=== PATIENT | female | born 1975 | race Caucasian/White ===

== ENCOUNTER 2024-06-01 16:57 | Inpatient (IN) ==
[2024-06-01 17:35] LABS: Hematocrit (blood only) 41.3 % (37.0-47.0); Hemoglobin 13.8 g/dl (12.0-16.0); Mean Corpuscular Hemoglobin 29.6 pg (25.0-34.0); Mean Corpuscular Hgb Conc 33.4 g/dL (32.0-36.0); Mean Corpuscular Volume 88.6 fL (80.0-100.0); Mean Platelet Volume 9.6 fL (9.4-12.4); Platelet Count 289 K/uL (130-400); RDW Coefficient of Variation 14.2 % (11.5-14.5); RDW Standard Deviation 45.8 fL (36.4-46.3); Red Blood Count 4.66 M/uL (4.20-5.40); White Blood Count 7.24 K/ul (4.8-10.8)
[2024-06-01 17:52] LABS: Albumin Globulin Ratio 1.6 (0.9-2); Bilirubin,Total 0.8 mg/dl (0.2-1.0); Calcium 10.2 mg/dl (8.6-10.3); Creatinine Clr Calc Pharmacy 92.3 ml/min; Est GFR (African American) 123.4 ml/min; Est GFR (Non-African American) 106.5 ml/min; Globulin 3.2 gm/dl (2.5-4.0); Magnesium 1.9 mg/dl (1.7-2.4); Potassium 3.5 mmol/L (3.5-5.1); Total Protein 8.2 gm/dl (6.0-8.3)
[2024-06-01 18:02] LABS: Partial Thromboplastin Time 26 Seconds (21-31); Prothrombin Time 10.6 Seconds (9.0-12.0)
--- NOTE | 2024-06-01 18:18 | XRay Report ---
XR chest 1V portable HISTORY: stroke alert COMPARISON: Chest 01/20/2020. FINDINGS: The lungs are clear. Cardiac silhouette is normal in size. No pleural effusions. No pneumot horax. IMPRESSION: No acute process. ACT 112: Negative or not required by law. Electronically signed by: Terrance Red M.D. 06/01/2024 6:17 PM
[2024-06-01] MEDS: OPTIRAY 320 100ml IV ONE (18:52)
--- NOTE | 2024-06-01 19:26 | Emergency Department Note ---
Impression & Plan Acute right-sided weakness ED Provider Note NAME: BRAYDEN Sawant SATURDAY AGE: 48 SEX: F : 1975 ARRIVES VIA: Walk-In INFORMANT: Patient, ED PROVIDER(S): Libby Pratt MD CHIEF COMPLAINT: Headache, dizziness, right sided weakness HPI: This is a 48-year-old female senting for right-sided weakness, headache, dizziness. Patient is with her and states that over the past 1 week she has had 2 episodes of "zoning out". He states that 1 time they were eating dinner and patient was staring off into space and could not be aroused. She was awake and staring off into space. Afterwards she appeared somewhat confused. She notes she went to her primary care physician who Noted she was weak on the right side. She has mention history of ascending aortic aneurysm as well as fibromuscular dysplasia. History of aortic valve stenosis/regurgitation. ROS: See above HPI for pertinent positives & negatives. A total of 10 systems reviewed and were otherwise negative. PHYSICAL EXAMINATION: General: resting comfortably in no acute distress Head: Normocephalic and atraumatic Eyes: Normal inspection, extraocular muscles intact Ear, nose, throat: Normal external exam Neck: Normal range of motion Respiratory: lungs clear to auscultation bilaterally Cardiovascular: Regular rate/rhythm, no murmur GI: soft, nontender, no guarding or rebound Extremities: nontender, moves all extremities Neuro: Right upper lower extremity weakness, cranial 2 through 12 grossly intact Skin: Warm, dry, and intact MEDICAL DECISION MAKING: This is a 48-year-old female senting for right-sided weakness, headache and dizziness. Patient also with episodes of zoning out. Consider intracranial mass, hemorrhage, MS, dissection. Will do CT of the head, neck and chest to rule out dissection versus intracranial bleeding versus mass. -Patient CTA currently is negative for acute process. There is a stable ascending aneurysm -Patient blood work is reviewed showing slight hyponatremia otherwise no significant abnormalities. -Patient still has persistent neurosymptoms. Will require admission at this time for further workup. -Discussed care with Dr. Aguiar Differential diagnosis: See above ER treatment provided: See below Diagnostics interpreted by me: ECG: None Cardiac Monitoring: An order was placed for continuous cardiac monitoring. The monitor shows a rate of 70 with sinus rhythm. Laboratory studies: As stated above and show below. Imaging studies: See below. Past Med/Surg History Problem List (Updated 06/02/24 @ 00:04 by Bird Cortez MD) Status post craniectomy Familial hypercholesterolemia Nocturia more than twice per night Recurrent episodes of unresponsiveness Aortic stenosis Mild to moderate per 12/31/19 ECHO = RHYS 1.6-1.7cm2; AV peak velocity 3.02m/s; AV mean gradient 18.9mmHg Follows with [facility] cardio FH of AV stenosis Hyperlipidemia History of Chiari malformation repaired 2011- no issues since repair- no follow up with neurosurgery or imaging needed per patient Hyponatremia with decreased serum osmolality Post-operative state Ascending aorta dilatation Aortic insufficiency Aortic stenosis Encounter for pre-operative examination Dyspnea on exertion (Acute) Menorrhagia Medical History History of Chiari malformation repaired 2011- no issues since repair- no follow up with neurosurgery or imaging needed per patient IBS (irritable bowel syndrome) Combination of diarrhea and constipation Anxiety No recent issues- hx of and has xanax if needed and has not used since 2018 Hyperlipidemia History of COVID-19 11/24/2020 was positive ([facility]) aches, fatigue, congestion, loss of taste/smell/ headache. quarantine 14 days no current sypmtoms and has received her vaccinations HTN (hypertension) Aortic stenosis Mild to moderate per 12/31/19 ECHO = RHYS 1.6-1.7cm2; AV peak velocity 3.02m/s; AV mean gradient 18.9mmHg Follows with [facility] cardio FH of AV stenosis Facial paresthesia Secondary to cluster migraine No current issues Hypophosphatasia patient is unaware Surgical History Hx of tubal ligation Hx of tonsillectomy History of umbilical hernia repair Family History Mother TIA (transient ischemic attack) Breast cancer Denies family history of Ovarian cancer Colorectal cancer Social History Smoking Status: Never smoker Second Hand Exposure: No; Do You Dip or Chew Tobacco: No; Hx Alcohol Use: Yes Hx Substance Use: No Preferred Language: Chinese Communication Ability: Effective Collar Sewer Required: No Beliefs That Will Affect Care: None Current Living Situation: Spouse Feels Safe at Home: Yes Assistive Devices: Glasses Allergies Allergies Allergy/AdvReac Type Severity Reaction Status Date / Time procaine Allergy Severe "Novocaine"-THROAT, Verified 06/01/24 19:58 TONGUE, MOUTH SWELLED Home Meds Home Medications Medication Instructions Recorded Confirmed aspirin 81 mg tablet,delayed 81 mg PO DAILY 06/01/24 06/01/24 release bempedoic acid 180 mg-ezetimibe 10 1 tab PO DAILY 06/01/24 06/01/24 mg tablet (Nexlizet) esomeprazole magnesium 20 mg 20 mg PO DAILY 06/01/24 06/01/24 tablet,delayed release evolocumab 140 mg/mL subcutaneous 140 mg subcut .QOTHER Saturday06/01/24 06/01/24 pen injector (Kimo Vila) fexofenadine 180 mg tablet 180 mg PO DAILY 06/01/24 06/01/24 fluoxetine 40 mg capsule 40 mg PO DAILY 06/01/24 06/01/24 rosuvastatin 40 mg tablet 40 mg PO DAILY 06/01/24 06/01/24 semaglutide (weight loss) 1.7 1.7 mg subcut .WEEK 06/01/24 06/01/24 mg/0.75 mL subcutaneous pen injector (Ksenia) Results & Data (ED) Vital Signs Vital Signs - 24 hr 06/01/24 17:02 06/01/24 19:00 06/01/24 19:14 Temperature 36.5 C Temperature Source Temporal Artery Scan Pulse Rate 80 72 Pulse Rate [Apical] 70 Pulse Rhythm Regular Pulse Rhythm [Apical] Regular Pulse Strength [Apical] Normal Respiratory Rate 20 17 Respiratory Effort / Characteristics Non-Labored Spontaneous Non-Labored Spontaneous Respiratory Depth Normal Normal Respiratory Pattern Regular Blood Pressure 130/85 Blood Pressure [Right Arm] 124/80 Blood Pressure Mean 100 Blood Pressure Mean [Right Arm] 94 Blood Pressure Position [Right Arm] Lying Pulse Oximetry 98 100 Oxygen Delivery Method Room Air Room Air Sepsis Recent Fever Within 48 Hours No Sepsis New/Unexplained Change in Mental Status No Sepsis Action Taken by Nursing No Action Required 06/01/24 21:00 Temperature Temperature Source Pulse Rate Pulse Rate [Apical] 71 Pulse Rhythm Pulse Rhythm [Apical] Regular Pulse Strength [Apical] Normal Respiratory Rate 19 Respiratory Effort / Characteristics Non-Labored Respiratory Depth Normal Respiratory Pattern Regular Blood Pressure Blood Pressure [Right Arm] 144/95 H Blood Pressure Mean Blood Pressure Mean [Right Arm] 111 Blood Pressure Position [Right Arm] Lying Pulse Oximetry 100 Oxygen Delivery Method Room Air Sepsis Recent Fever Within 48 Hours Sepsis New/Unexplained Change in Mental Status Sepsis Action Taken by Nursing Laboratory Data 06/01/24 17:13 06/01/24 17:13 Lab Results 06/01/24 Range/Units 17:13 WBC 7.24 (4.8-10.8) K/ul RBC 4.66 (4.20-5.40) M/uL Hgb 13.8 (12.0-16.0) g/dl Hct 41.3 (37.0-47.0) % MCV 88.6 (80.0-100.0) fL MCH 29.6 (25.0-34.0) pg MCHC 33.4 (32.0-36.0) g/dL RDW Std Deviation 45.8 (36.4-46.3) fL RDW Coeff of Andriy 14.2 (11.5-14.5) % Plt Count 289 (130-400) K/uL MPV 9.6 (9.4-12.4) fL ESR 16 (0-20) mm/hr PT 10.6 (9.0-12.0) Seconds INR 1.0 (0.9-1.1) APTT 26 (21-31) Seconds PTT Ratio 1.0 Sodium 128 L (136-145) mmol/L Potassium 3.5 (3.5-5.1) mmol/L Chloride 95 L (98-107) mmol/L Carbon Dioxide 23 (21-32) mmol/L Anion Gap 10 (3-11) BUN 11 (6-23) mg/dl Creatinine 0.61 (0.6-1.2) mg/dl Est Cr Clr Drug Dosing 92.3 ml/min Est GFR ( Amer) 123.4 ml/min Est GFR (Non-Af Amer) 106.5 ml/min BUN/Creatinine Ratio 18.0 (10-20) Glucose 85 (70-99(Fasting)) mg/dl Osmolality 265 L (280-300) mOsm/kg Calcium 10.2 (8.6-10.3) mg/dl Magnesium 1.9 (1.7-2.4) mg/dl Total Bilirubin 0.8 (0.2-1.0) mg/dl AST 26 (13-39) U/L ALT 34 (7-52) U/L Alkaline Phosphatase 40 (34-104) U/L Total Protein 8.2 (6.0-8.3) gm/dl Albumin 5.0 (3.4-5.0) gm/dl Globulin 3.2 (2.5-4.0) gm/dl Albumin/Globulin Ratio 1.6 (0.9-2) Anaplasma Smear See Comment Babesia Smear See Comment Lyme Disease Screen Negative (Negative) Administered Medications Discontinued Medications Ioversol (Optiray 320 100ml) 120 ml IV ONCE ONE Stop: 06/01/24 18:52 Last Admin: 06/01/24 18:52 Dose: 120 ml Documented By: LEROY Lorazepam (Lorazepam 1 Mg/1 Ml Syr Ed Inj Use) 0.5 mg IV ONE STA Stop: 06/01/24 21:17 Last Admin: 06/01/24 21:32 Dose: 0.5 mg Documented By: Imaging Data Radiologist's Impression: Chest X-Ray 06/01/24 17:09 XR chest 1V portable HISTORY: stroke alert COMPARISON: Chest 01/20/2020. FINDINGS: The lungs are clear. Cardiac silhouette is normal in size. No pleural effusions. No pneumothorax. IMPRESSION: No acute process. ACT 112: Negative or not required by law. Electronically signed by: Terrance Red M.D. 06/01/2024 6:[address] 06/01/24 17:09 Exam(s): CT HEAD Without Contrast EXAM: CT Head Without Intravenous Contrast CLINICAL HISTORY: Reason for exam: Neuro deficit, acute, stroke suspected. TECHNIQUE: Axial computed tomography images of the head/brain without intravenous contrast. CTDI is 67 mGy and DLP is 565 mGy-cm. Automated exposure control was utilized for the study. A dose lowering technique was utilized adhering to the principles of ALARA. COMPARISON: MRI brain 03/05/23. FINDINGS: Brain: No mass effect or acute infarct. No acute hemorrhage. No abnormal density in the brain parenchyma. Ventricles: No hydrocephalus or midline shift. Bones/joints: No skull fracture. Well-healed suboccipital craniectomy. Soft tissues: No scalp hematoma. Visualized Sinuses: Clear. Mastoid air cells: No mastoid effusion. IMPRESSION: 1. Well-healed suboccipital craniectomy. 2. No acute intracranial abnormality. Electronically signed by: Kina Hogue M.D. 06/01/24 19:55 PM Chest CTA 06/01/24 18:33 Exam(s): CTA CHEST W/WO Contrast IV Amt: 120ml optiray 320 EXAM: CT Angiography Chest Without and With Intravenous Contrast CLINICAL HISTORY: Reason for exam: Dissection, hx of Fibromuscular dysplasia. TECHNIQUE: Axial computed tomographic angiography images of the chest without and with intravenous contrast. CTDI is 67 mGy and DLP is 565 mGy-cm. Automated exposure control was utilized for the study. A dose lowering technique was utilized adhering to the principles of ALARA. MIP reconstructed images were created and reviewed. CONTRAST: Patient received 120ml optiray 320 of IV contrast COMPARISON: Chest CT 05/10/2023 FINDINGS: Pulmonary arteries: No pulmonary embolism. Aorta: Aneurysmal ascending thoracic aorta measuring 4.4 cm which is unchanged. No acute aortic syndrome. Lungs: Unremarkable. Pleural space: Unremarkable. Heart: Unremarkable. Bones/joints: No acute fracture. Soft tissues: Unremarkable. Lymph nodes: Unremarkable. Liver: Partially visualized low-attenuation lesions within the liver favored to represent cysts. IMPRESSION: Aneurysmal ascending thoracic aorta measuring 4.4 cm which is unchanged. No acute aortic syndrome. Electronically signed by: Rohit Stallworth MD 06/01/24 19:49 PM Head CTA 06/01/24 18:33 Exam(s): CTA HEAD With Contrast IV Amt: 120ml optiray 320 EXAM: CT Angiography Head With Intravenous Contrast CLINICAL HISTORY: Reason for exam: Dissection, hx of Fibromuscular dysplasia, R weak. TECHNIQUE: Axial computed tomographic angiography images of the head with intravenous contrast. CTDI is 67 mGy and DLP is 565 mGy-cm. Automated exposure control was utilized for the study. A dose lowering technique was utilized adhering to the principles of ALARA. MIP reconstructed images were created and reviewed. CONTRAST: Patient received 120ml optiray 320 of IV contrast COMPARISON: Head CT done earlier. FINDINGS: Right internal carotid artery: Patent. Right anterior cerebral artery: Patent. Right middle cerebral artery: Patent. Right posterior cerebral artery: Patent. Right vertebral artery: Patent. Left internal carotid artery: Patent. Left anterior cerebral artery: Patent. Left middle cerebral artery: Patent. Left posterior cerebral artery: Patent. Left vertebral artery: Patent. Basilar artery: Patent. Other: Changes of suboccipital craniectomy again noted. IMPRESSION: 1. No aneurysm or large vessel occlusion. Electronically signed by: Kina Hogue M.D. 06/01/24 20:00 PM Neck CTA 06/01/24 18:33 Exam(s): CTA NECK With Contrast IV Amt: 120ml optiray 320 EXAM: CT Angiography Neck With Intravenous Contrast, With Intra-Articular Contrast CLINICAL HISTORY: Reason for exam: Dissection, hx of Fibromuscular dysplasia. TECHNIQUE: Routine carotid CT angiography protocol was performed with intravenous contrast, with intra-articular contrast. NASCET criteria using the distal ICAs for comparison were used for evaluation of stenoses. CTDI is 67 mGy and DLP is 565 mGy-cm. Automated exposure control was utilized for the study. A dose lowering technique was utilized adhering to the principles of ALARA. MIP reconstructed images were created and reviewed. CONTRAST: Patient received 120ml optiray 320 of IV contrast COMPARISON: None. FINDINGS: Right common carotid artery: Patent. Right internal carotid artery: Patent. Right vertebral artery: Patent. Left common carotid artery: Patent. Left internal carotid artery: Patent. Left vertebral artery: Patent. Codominant. Other: No significant carotid atherosclerosis or stenosis. IMPRESSION: 1. No dissection, occlusion, or significant stenosis. CAROTID STENOSIS REFERENCE USING NASCET CRITERIA: % ICA stenosis = (1 - narrowest ICA diameter/diameter of distal cervical ICA) x 100. Mild - <50% stenosis. Moderate - 50-69% stenosis. Severe - 70-94% stenosis. Near occlusion - 95-99% stenosis. Occluded - 100% stenosis. Electronically signed by: Kina Hogue M.D. 06/01/24 20:00 PM Brain MRI 06/01/24 21:02 Exam(s): MRI HEAD Without Contrast EXAM: MR Head Without Intravenous Contrast CLINICAL HISTORY: Reason for exam: altered mentation, hx suboccipital craniectomy. TECHNIQUE: Magnetic resonance images of the head/brain without intravenous contrast in multiple planes. COMPARISON: MRI 03/05/[address] 06/01/2024 FINDINGS: Brain: Unremarkable. No mass. No hemorrhage. No acute infarct. Ventricles: Unremarkable. No ventriculomegaly. Bones/joints: Unremarkable. No acute fracture. Sinuses: Mucosal thickening within the left sphenoid sinus. Remainder of the paranasal sinuses are clear. No acute sinusitis. Mastoid air cells: Unremarkable as visualized. No mastoid effusion. Orbits: Unremarkable as visualized. IMPRESSION: No acute findings in the head/brain. Electronically signed by: Rohit Stallworth MD 06/01/24 22:49 PM Cervical Spine MRI 06/01/24 21:02 Exam(s): MRI C SPINE EXAM: MR Cervical Spine Without Intravenous Contrast CLINICAL HISTORY: Reason for exam: altered mentation, hx suboccipital craniectomy. TECHNIQUE: Magnetic resonance images of the cervical spine without intravenous contrast in multiple planes. COMPARISON: Cervical spine MRI 07/07/12. FINDINGS: Vertebrae: No marrow edema, compression deformity, discitis or osteomyelitis. Normal, smooth curvature. Spinal cord: Unremarkable. Normal signal. No cervical cord syrinx. Soft tissues: Unremarkable. No epidural hematoma or abscess. No Chiari malformation. DISCS/SPINAL CANAL/NEURAL FORAMINA: C2-C3: Unremarkable. C3-C4: Unremarkable. C4-C5: Unremarkable. C5-C6: Very minimal degenerative disc disease. C6-C7: Unremarkable. C7-T1: Unremarkable. OTHER: No disc herniation or central spinal stenosis. Facet joint fairly well-preserved for this age group. IMPRESSION: 1. Very minimal degenerative disc disease at C5-6. 2. No Chiari malformation, disc herniation, spinal stenosis, epidural hematoma, abnormal cord signal, or discitis/osteomyelitis. Electronically signed by: Kina Hogue M.D. 06/01/24 23:20 PM Discharge Plan Visit Data Chief Complaint: Referred by Doctor Stated Complaint: R SIDED WEAKNESS/POSSIBLE ARTERY DISSECTION REF BY ED Provider: Libby Pratt Discharge Problem: Acute right-sided weakness Patient Disposition: Admitted As Inpatient Discharge Instructions Interventions: ED Discharge Assessment Last Done: 06/01/24 23:20
--- NOTE | 2024-06-01 19:50 | CT Scan Report ---
Exam(s): CTA CHEST W/WO Contrast IV Amt: 120ml optiray 320 EXAM: CT Angiography Chest Without and With Intravenous Contrast CLINICAL HISTORY: Reason for exam: Dissection, hx of Fibromuscular dysplasia. TECHNIQUE: Axial computed tomographic angiography images of the chest without and with intravenous contrast. CTDI is 67 mGy and DLP is 565 mGy-cm. Automated exposure control was utilized for the study. A dose lowering technique was utilized adhering to the principles of ALARA. MIP reconstructed images were created and reviewed. CONTRAST: Patient received 120ml optiray 320 of IV contrast COMPARISON: Chest CT 05/10/2023 FINDINGS: Pulmonary arteries: No pulmonary embolism. Aorta: Aneurysmal ascending thoracic aorta measuring 4.4 cm which is unchanged. No acute aortic syndrome. Lungs: Unremarkable. Pleural space: Unremarkable. Heart: Unremarkable. Bones/joints: No acute fracture. Soft tissues: Unremarkable. Lymph nodes: Unremarkable. Liver: Partially visualized low-attenuation lesions within the liver favored to represent cysts. IMPRESSION: Aneurysmal ascending thoracic aorta measuring 4.4 cm which is unchanged. No acute aortic syndrome. Electronically signed by: Rohit Stallworth MD 06/01/24 19:49 PM
--- NOTE | 2024-06-01 19:56 | CT Scan Report ---
Exam(s): CT HEAD Without Contrast EXAM: CT Head Without Intravenous Contrast CLINICAL HISTORY: Reason for exam: Neuro deficit, acute, stroke suspected. TECHNIQUE: Axial computed tomography images of the head/brain without intravenous contrast. CTDI is 67 mGy and DLP is 565 mGy-cm. Automated exposure control was utilized for the study. A dose lowering technique was utilized adhering to the principles of ALARA. COMPARISON: MRI brain 03/05/23. FINDINGS: Brain: No mass effect or acute infarct. No acute hemorrhage. No abnormal density in the brain parenchyma. Ventricles: No hydrocephalus or midline shift. Bones/joints: No skull fracture. Well-healed suboccipital craniectomy. Soft tissues: No scalp hematoma. Visualized Sinuses: Clear. Mastoid air cells: No mastoid effusion. IMPRESSION: 1. Well-healed suboccipital craniectomy. 2. No acute intracranial abnormality. Electronically signed by: Kina Hogue M.D. 06/01/24 19:55 PM
--- NOTE | 2024-06-01 20:01 | CT Scan Report ---
Exam(s): CTA HEAD With Contrast IV Amt: 120ml optiray 320 EXAM: CT Angiography Head With Intravenous Contrast CLINICAL HISTORY: Reason for exam: Dissection, hx of Fibromuscular dysplasia, R weak. TECHNIQUE: Axial computed tomographic angiography images of the head with intravenous contrast. CTDI is 67 mGy and DLP is 565 mGy-cm. Automated exposure control was utilized for the study. A dose lowering technique was utilized adhering to the principles of ALARA. MIP reconstructed images were created and reviewed. CONTRAST: Patient received 120ml optiray 320 of IV contrast COMPARISON: Head CT done earlier. FINDINGS: Right internal carotid artery: Patent. Right anterior cerebral artery: Patent. Right middle cerebral artery: Patent. Right posterior cerebral artery: Patent. Right vertebral artery: Patent. Left internal carotid artery: Patent. Left anterior cerebral artery: Patent. Left middle cerebral artery: Patent. Left posterior cerebral artery: Patent. Left vertebral artery: Patent. Basilar artery: Patent. Other: Changes of suboccipital craniectomy again noted. IMPRESSION: 1. No aneurysm or large vessel occlusion. Electronically signed by: Kina Hogue M.D. 06/01/24 20:00 PM
--- NOTE | 2024-06-01 20:01 | CT Scan Report ---
Exam(s): CTA NECK With Contrast IV Amt: 120ml optiray 320 EXAM: CT Angiography Neck With Intravenous Contrast, With Intra-Articular Contrast CLINICAL HISTORY: Reason for exam: Dissection, hx of Fibromuscular dysplasia. TECHNIQUE: Routine carotid CT angiography protocol was performed with intravenous contrast, with intra-articular contrast. NASCET criteria using the distal ICAs for comparison were used for evaluation of stenoses. CTDI is 67 mGy and DLP is 565 mGy-cm. Automated exposure control was utilized for the study. A dose lowering technique was utilized adhering to the principles of ALARA. MIP reconstructed images were created and reviewed. CONTRAST: Patient received 120ml optiray 320 of IV contrast COMPARISON: None. FINDINGS: Right common carotid artery: Patent. Right internal carotid artery: Patent. Right vertebral artery: Patent. Left common carotid artery: Patent. Left internal carotid artery: Patent. Left vertebral artery: Patent. Codominant. Other: No significant carotid atherosclerosis or stenosis. IMPRESSION: 1. No dissection, occlusion, or significant stenosis. CAROTID STENOSIS REFERENCE USING NASCET CRITERIA: % ICA stenosis = (1 - narrowest ICA diameter/diameter of distal cervical ICA) x 100. Mild - <50% stenosis. Moderate - 50-69% stenosis. Severe - 70-94% stenosis. Near occlusion - 95-99% stenosis. Occluded - 100% stenosis. Electronically signed by: Kina Hogue M.D. 06/01/24 20:00 PM
--- NOTE | 2024-06-01 21:29 | History & Physical Report ---
Date of Service June 01, 2024 Assessment & Plan (1) Recurrent episodes of unresponsiveness: (2) Hyponatremia with decreased serum osmolality: (3) History of Chiari malformation: (4) Ascending aorta dilatation: (5) Aortic insufficiency: (6) Aortic stenosis: (7) Nocturia more than twice per night: (8) Familial hypercholesterolemia: (9) Status post craniectomy: Plan Recurrent episodes of unresponsiveness- reports that about 1 week ago she had a first episode, where she was staring off into space and he had a wave hands in front of her eyes and ultimately get her to respond after several seconds. Second episode happened 2 days ago, a longer duration of a few minutes, and then she was confused for up to 30 minutes afterwards, without loss of bowel or bladder control, and no noted tremors or shaking No focal deficits on examination Lyme test added and negative Anaplasmosis and babesiosis smears negative with antibodies pending Ehrlichiosis antibody pending Hypercoagulable workup to assess for arterial coagulopathy Continue aspirin 81 mg daily History of Chiari malformation/status post suboccipital craniectomy in 2011- CT scan head negative except for evidence of craniectomy CTA head and neck negative MRI of brain and cervical spine with no acute findings EEG ordered Will consult neurology Hyponatremia- Sodium 128 on admission, with previous 134 on 12/16/2023 Serum osmolality 265, with urine osmolality pending Patient denies excessive fluid intake Further treatment pending results of UA and urine osmolality Moderate aortic stenosis/aortic insufficiency/dilated ascending aorta- CTA notes stable at 4.4 cm Echocardiogram ordered for the a.m. Assess valvular function, and possibility of SBE Nocturia- Patient reports that she gets up every 2 hours to urinate, she notices, as she has to stop her CPAP machine at the time, and the timing is noted there Urinalysis, urine culture and sensitivity ordered and pending Severe familial hypercholesterolemia- Continues on Nexlizet, Repatha, and rosuvastatin Weight loss- Intentional 90 pound weight loss since August 2023 on Wegovy Reports that she is at her target weight Bilateral lower extremity dysfunction of toes- Patient reports that she has had a decreased ability to flex her toes bilaterally [facility] reportedly was concerned regarding arterial circulation She has had negative arterial Dopplers of left lower extremity earlier this year Order right lower extremity arterial Doppler Sleep apnea- Wears CPAP at bedtime History of Present Illness Chief Complaint: The patient presents to the emergency department with her , due to concerns regarding episodes of staring off into space, with the first being about 1 week ago, of a few seconds duration, and then another 2 days ago, which lasted several minutes, and she was confused afterwards for up to 30 minutes. Primary Care Provider: Lisa Taylor DO The patient is a 48-year-old female with a past medical history including Chiari malformation status post suboccipital craniotomy in 2011, moderate aortic stenosis, aortic insufficiency, ascending aorta dilatation, severe atherogenic familial hypercholesterolemia, obesity on weight loss Wegovy with 90 pound weight loss since August 2023. The patient presents to the emergency department due to concerns regarding multiple episodes of staring off into space, with most recent followed by disorientation for up to 30 minutes, without associated loss of bowel or bladder control. The patient does report nocturia, urinating approximately every 2 hours overnight. She also notes decreased ability to flex toes, and more recent development but exact timeframe uncertain. She reports that she was to get arterial studies done at [facility]. She follows at [facility] for her severe familial hypercholesterolemia, and associated medical issues. The patient reports an intentional 90 pound weight loss since August 2023 on Wego, and reports that she is currently at her recommended target weight, but her cholesterol is still not optimized with an LDL of approximately 90 Allergies Allergy/AdvReac Type Severity Reaction Status Date / Time procaine Allergy Severe "Novocaine"-THROAT, Verified 06/01/24 19:58 TONGUE, MOUTH SWELLED Home Medications Medication Instructions Recorded Confirmed Type aspirin 81 mg tablet,delayed 81 mg PO DAILY 06/01/24 06/01/24 History release bempedoic acid 180 mg-ezetimibe 10 1 tab PO DAILY 06/01/24 06/01/24 History mg tablet (Nexlizet) esomeprazole magnesium 20 mg 20 mg PO DAILY 06/01/24 06/01/24 History tablet,delayed release evolocumab 140 mg/mL subcutaneous 140 mg subcut .QOTHER Saturday06/01/24 06/01/24 History pen injector (Repmessi Vila) fexofenadine 180 mg tablet 180 mg PO DAILY 06/01/24 06/01/24 History fluoxetine 40 mg capsule 40 mg PO DAILY 06/01/24 06/01/24 History rosuvastatin 40 mg tablet 40 mg PO DAILY 06/01/24 06/01/24 History semaglutide (weight loss) 1.7 1.7 mg subcut .WEEK 06/01/24 06/01/24 History mg/0.75 mL subcutaneous pen injector (Wegovy) Past Med/Surg History Problem List (Updated 06/02/24 @ 00:04 by Bird Cortez MD) Status post craniectomy Familial hypercholesterolemia Nocturia more than twice per night Recurrent episodes of unresponsiveness Aortic stenosis Mild to moderate per 12/31/19 ECHO = RHYS 1.6-1.7cm2; AV peak velocity 3.02m/s; AV mean gradient 18.9mmHg Follows with [facility] cardio FH of AV stenosis Hyperlipidemia History of Chiari malformation repaired 2011- no issues since repair- no follow up with neurosurgery or imaging needed per patient Hyponatremia with decreased serum osmolality Post-operative state Ascending aorta dilatation Aortic insufficiency Aortic stenosis Encounter for pre-operative examination Dyspnea on exertion (Acute) Menorrhagia Medical History History of Chiari malformation repaired 2011- no issues since repair- no follow up with neurosurgery or imaging needed per patient IBS (irritable bowel syndrome) Combination of diarrhea and constipation Anxiety No recent issues- hx of and has xanax if needed and has not used since 2018 Hyperlipidemia History of COVID-19 11/24/2020 was positive ([facility]) aches, fatigue, congestion, loss of taste/smell/ headache. quarantine 14 days no current sypmtoms and has received her vaccinations HTN (hypertension) Aortic stenosis Mild to moderate per 12/31/19 ECHO = RHYS 1.6-1.7cm2; AV peak velocity 3.02m/s; AV mean gradient 18.9mmHg Follows with [facility] cardio FH of AV stenosis Facial paresthesia Secondary to cluster migraine No current issues Hypophosphatasia patient is unaware Surgical History Hx of tubal ligation Hx of tonsillectomy History of umbilical hernia repair Family History Mother TIA (transient ischemic attack) Breast cancer Denies family history of Ovarian cancer Colorectal cancer Social History Smoking Status: Never smoker Second Hand Exposure: No; Do You Dip or Chew Tobacco: No; Hx Alcohol Use: Yes Hx Substance Use: No Preferred Language: Yakut Communication Ability: Effective Indoor Landscaper/Gardener Required: No Beliefs That Will Affect Care: None Current Living Situation: Spouse Feels Safe at Home: Yes Assistive Devices: CPAP and Glasses Review of Systems Review of Systems: The patient denies chest pain, palpitations, shortness of breath, dyspnea on exertion, cough, lower extremity swelling, sore throat, fevers, chills, sweats, nausea, vomiting, diarrhea , constipation, abdominal pain, pelvic pain, blood in urine or stool, dysuria, urinary frequency or urgency, lightheadedness, dizziness, headache, loss of consciousness, rash, abnormal bruising or bleeding, imbalance, focal or generalized weakness, numbness or tingling in arms or legs, generalized arthralgias or myalgias, back or neck pain, or night sweats. The review of systems is otherwise negative other than for that already noted above, and at least 10 systems have been reviewed. Physical Exam Physical Exam: The patient is awake, alert and oriented 3, well developed and well nourished, normocephalic and atraumatic, lying in bed and in no acute distress. HEENT--PERRL, EOMI, mucous membranes and oropharynx normal. Neck--supple. No JVD. No bruits. Thyroid normal, trachea midline, no adenopathy. Heart--normal S1 and S2. No murmurs, rubs or gallops. Lungs--clear bilaterally, no respiratory distress, no accessory muscle use. Abdomen--normal bowel sounds and soft. Nontender. Nondistended, no hernias or masses, no organomegaly. Extremities--no cyanosis or clubbing. No edema. There are diminished pulses bilaterally Dermatologic--normal skin turgor, normal color, no abnormal lymph nodes, no rash. Neurologic--cranial nerves II through XII grossly intact. Decreased ability to flex toes symmetrically, but able to dorsiflex Rheumatologic--normal range of motion. Psychiatric--normal affect. Results & Data Results & Data Vital Signs (Past 12 Hours) Vital Signs Temp Pulse Pulse Resp BP BP Pulse Ox 06/01/24 19:14 72 06/01/24 19:00 70 17 124/80 100 06/01/24 17:02 36.5 C 80 20 130/85 98 O2 Del Method 06/01/24 19:14 06/01/24 19:00 Room Air 06/01/24 17:02 Room Air Laboratory Results Laboratory Results WBC 7.24 K/ul (4.8-10.8) 06/01/24 17:13 RBC 4.66 M/uL (4.20-5.40) 06/01/24 17:13 Hgb 13.8 g/dl (12.0-16.0) 06/01/24 17:13 Hct 41.3 % (37.0-47.0) 06/01/24 17:13 MCV 88.6 fL (80.0-100.0) 06/01/24 17:13 MCH 29.6 pg (25.0-34.0) 06/01/24 17:13 MCHC 33.4 g/dL (32.0-36.0) 06/01/24 17:13 RDW Std Deviation 45.8 fL (36.4-46.3) 06/01/24 17:13 RDW Coeff of Andriy 14.2 % (11.5-14.5) 06/01/24 17:13 Plt Count 289 K/uL (130-400) 06/01/24 17:13 MPV 9.6 fL (9.4-12.4) 06/01/24 17:13 ESR 16 mm/hr (0-20) 06/01/24 17:13 PT 10.6 Seconds (9.0-12.0) 06/01/24 17:13 INR 1.0 (0.9-1.1) 06/01/24 17:13 APTT 26 Seconds (21-31) 06/01/24 17:13 PTT Ratio 1.0 06/01/24 17:13 Sodium 128 mmol/L (136-145) L 06/01/24 17:13 Potassium 3.5 mmol/L (3.5-5.1) 06/01/24 17:13 Chloride 95 mmol/L (98-107) L 06/01/24 17:13 Carbon Dioxide 23 mmol/L (21-32) 06/01/24 17:13 Anion Gap 10 (3-11) 06/01/24 17:13 BUN 11 mg/dl (6-23) 06/01/24 17:13 Creatinine 0.61 mg/dl (0.6-1.2) 06/01/24 17:13 Est Cr Clr Drug Dosing 92.3 ml/min 06/01/24 17:13 Est GFR ( Amer) 123.4 ml/min 06/01/24 17:13 Est GFR (Non-Af Amer) 106.5 ml/min 06/01/24 17:13 BUN/Creatinine Ratio 18.0 (10-20) 06/01/24 17:13 Glucose 85 mg/dl (70-99(Fasting)) 06/01/24 17:13 Osmolality 265 mOsm/kg (280-300) L 06/01/24 17:13 Calcium 10.2 mg/dl (8.6-10.3) 06/01/24 17:13 Magnesium 1.9 mg/dl (1.7-2.4) 06/01/24 17:13 Total Bilirubin 0.8 mg/dl (0.2-1.0) 06/01/24 17:13 AST 26 U/L (13-39) 06/01/24 17:13 ALT 34 U/L (7-52) 06/01/24 17:13 Alkaline Phosphatase 40 U/L (34-104) 06/01/24 17:13 Total Protein 8.2 gm/dl (6.0-8.3) 06/01/24 17:13 Albumin 5.0 gm/dl (3.4-5.0) 06/01/24 17:13 Globulin 3.2 gm/dl (2.5-4.0) 06/01/24 17:13 Albumin/Globulin Ratio 1.6 (0.9-2) 06/01/24 17:13 Anaplasma Smear See Comment 06/01/24 17:13 Babesia Smear See Comment 06/01/24 17:13 Lyme Disease Screen Negative (Negative) 06/01/24 17:13 Impressions Chest X-Ray 06/01/24 17:09 XR chest 1V portable HISTORY: stroke alert COMPARISON: Chest 01/20/2020. FINDINGS: The lungs are clear. Cardiac silhouette is normal in size. No pleural effusions. No pneumothorax. IMPRESSION: No acute process. ACT 112: Negative or not required by law. Electronically signed by: Terrance Red M.D. 06/01/2024 6:[address] 06/01/24 17:09 Exam(s): CT HEAD Without Contrast EXAM: CT Head Without Intravenous Contrast CLINICAL HISTORY: Reason for exam: Neuro deficit, acute, stroke suspected. TECHNIQUE: Axial computed tomography images of the head/brain without intravenous contrast. CTDI is 67 mGy and DLP is 565 mGy-cm. Automated exposure control was utilized for the study. A dose lowering technique was utilized adhering to the principles of ALARA. COMPARISON: MRI brain 03/05/23. FINDINGS: Brain: No mass effect or acute infarct. No acute hemorrhage. No abnormal density in the brain parenchyma. Ventricles: No hydrocephalus or midline shift. Bones/joints: No skull fracture. Well-healed suboccipital craniectomy. Soft tissues: No scalp hematoma. Visualized Sinuses: Clear. Mastoid air cells: No mastoid effusion. IMPRESSION: 1. Well-healed suboccipital craniectomy. 2. No acute intracranial abnormality. Electronically signed by: Kina Hogue M.D. 06/01/24 19:55 PM Chest CTA 06/01/24 18:33 Exam(s): CTA CHEST W/WO Contrast IV Amt: 120ml optiray 320 EXAM: CT Angiography Chest Without and With Intravenous Contrast CLINICAL HISTORY: Reason for exam: Dissection, hx of Fibromuscular dysplasia. TECHNIQUE: Axial computed tomographic angiography images of the chest without and with intravenous contrast. CTDI is 67 mGy and DLP is 565 mGy-cm. Automated exposure control was utilized for the study. A dose lowering technique was utilized adhering to the principles of ALARA. MIP reconstructed images were created and reviewed. CONTRAST: Patient received 120ml optiray 320 of IV contrast COMPARISON: Chest CT 05/10/2023 FINDINGS: Pulmonary arteries: No pulmonary embolism. Aorta: Aneurysmal ascending thoracic aorta measuring 4.4 cm which is unchanged. No acute aortic syndrome. Lungs: Unremarkable. Pleural space: Unremarkable. Heart: Unremarkable. Bones/joints: No acute fracture. Soft tissues: Unremarkable. Lymph nodes: Unremarkable. Liver: Partially visualized low-attenuation lesions within the liver favored to represent cysts. IMPRESSION: Aneurysmal ascending thoracic aorta measuring 4.4 cm which is unchanged. No acute aortic syndrome. Electronically signed by: Rohit Stallworth MD 06/01/24 19:49 PM Head CTA 06/01/24 18:33 Exam(s): CTA HEAD With Contrast IV Amt: 120ml optiray 320 EXAM: CT Angiography Head With Intravenous Contrast CLINICAL HISTORY: Reason for exam: Dissection, hx of Fibromuscular dysplasia, R weak. TECHNIQUE: Axial computed tomographic angiography images of the head with intravenous contrast. CTDI is 67 mGy and DLP is 565 mGy-cm. Automated exposure control was utilized for the study. A dose lowering technique was utilized adhering to the principles of ALARA. MIP reconstructed images were created and reviewed. CONTRAST: Patient received 120ml optiray 320 of IV contrast COMPARISON: Head CT done earlier. FINDINGS: Right internal carotid artery: Patent. Right anterior cerebral artery: Patent. Right middle cerebral artery: Patent. Right posterior cerebral artery: Patent. Right vertebral artery: Patent. Left internal carotid artery: Patent. Left anterior cerebral artery: Patent. Left middle cerebral artery: Patent. Left posterior cerebral artery: Patent. Left vertebral artery: Patent. Basilar artery: Patent. Other: Changes of suboccipital craniectomy again noted. IMPRESSION: 1. No aneurysm or large vessel occlusion. Electronically signed by: Kina Hogue M.D. 06/01/24 20:00 PM Neck CTA 06/01/24 18:33 Exam(s): CTA NECK With Contrast IV Amt: 120ml optiray 320 EXAM: CT Angiography Neck With Intravenous Contrast, With Intra-Articular Contrast CLINICAL HISTORY: Reason for exam: Dissection, hx of Fibromuscular dysplasia. TECHNIQUE: Routine carotid CT angiography protocol was performed with intravenous contrast, with intra-articular contrast. NASCET criteria using the distal ICAs for comparison were used for evaluation of stenoses. CTDI is 67 mGy and DLP is 565 mGy-cm. Automated exposure control was utilized for the study. A dose lowering technique was utilized adhering to the principles of ALARA. MIP reconstructed images were created and reviewed. CONTRAST: Patient received 120ml optiray 320 of IV contrast COMPARISON: None. FINDINGS: Right common carotid artery: Patent. Right internal carotid artery: Patent. Right vertebral artery: Patent. Left common carotid artery: Patent. Left internal carotid artery: Patent. Left vertebral artery: Patent. Codominant. Other: No significant carotid atherosclerosis or stenosis. IMPRESSION: 1. No dissection, occlusion, or significant stenosis. CAROTID STENOSIS REFERENCE USING NASCET CRITERIA: % ICA stenosis = (1 - narrowest ICA diameter/diameter of distal cervical ICA) x 100. Mild - <50% stenosis. Moderate - 50-69% stenosis. Severe - 70-94% stenosis. Near occlusion - 95-99% stenosis. Occluded - 100% stenosis. Electronically signed by: Kina Hogue M.D. 06/01/24 20:00 PM Brain MRI 06/01/24 21:02 Exam(s): MRI HEAD Without Contrast EXAM: MR Head Without Intravenous Contrast CLINICAL HISTORY: Reason for exam: altered mentation, hx suboccipital craniectomy. TECHNIQUE: Magnetic resonance images of the head/brain without intravenous contrast in multiple planes. COMPARISON: MRI 03/05/[address] 06/01/2024 FINDINGS: Brain: Unremarkable. No mass. No hemorrhage. No acute infarct. Ventricles: Unremarkable. No ventriculomegaly. Bones/joints: Unremarkable. No acute fracture. Sinuses: Mucosal thickening within the left sphenoid sinus. Remainder of the paranasal sinuses are clear. No acute sinusitis. Mastoid air cells: Unremarkable as visualized. No mastoid effusion. Orbits: Unremarkable as visualized. IMPRESSION: No acute findings in the head/brain. Electronically signed by: Rohit Stallworth MD 06/01/24 22:49 PM Cervical Spine MRI 06/01/24 21:02 Exam(s): MRI C SPINE EXAM: MR Cervical Spine Without Intravenous Contrast CLINICAL HISTORY: Reason for exam: altered mentation, hx suboccipital craniectomy. TECHNIQUE: Magnetic resonance images of the cervical spine without intravenous contrast in multiple planes. COMPARISON: Cervical spine MRI 07/07/12. FINDINGS: Vertebrae: No marrow edema, compression deformity, discitis or osteomyelitis. Normal, smooth curvature. Spinal cord: Unremarkable. Normal signal. No cervical cord syrinx. Soft tissues: Unremarkable. No epidural hematoma or abscess. No Chiari malformation. DISCS/SPINAL CANAL/NEURAL FORAMINA: C2-C3: Unremarkable. C3-C4: Unremarkable. C4-C5: Unremarkable. C5-C6: Very minimal degenerative disc disease. C6-C7: Unremarkable. C7-T1: Unremarkable. OTHER: No disc herniation or central spinal stenosis. Facet joint fairly well-preserved for this age group. IMPRESSION: 1. Very minimal degenerative disc disease at C5-6. 2. No Chiari malformation, disc herniation, spinal stenosis, epidural hematoma, abnormal cord signal, or discitis/osteomyelitis. Electronically signed by: Kina Hogue M.D. 06/01/24 23:20 PM Code Status & VTE Plan Code Status Full code VTE Prophylaxis Plan VTE Prophylaxis will be ordered: Yes PG Care Time/CCT Total # of Minutes Spent Total Time Spent with Patient: Total time spent is greater than 50% in coordination of care (as documented) at patient's floor/unit and/or counseling patient: Coding Level of Care Code 18780 INT INP/OBS CARE 3/75MIN Diagnoses Recurrent episodes of unresponsiveness R40.4 Hyponatremia with decreased serum osmolality E87.1 History of Chiari malformation Z86.69 Ascending aorta dilatation I77.810 Aortic insufficiency I35.1 Aortic stenosis I35.0 Nocturia more than twice per night R35.1 Familial hypercholesterolemia E78.01 Status post craniectomy Z98.890
[2024-06-01] MEDS: LORazepam 1 MG/1 ML SYR ED Inj Use IV STA (21:32)
--- NOTE | 2024-06-01 22:51 | Magnetic Resonance Report ---
Exam(s): MRI HEAD Without Contrast EXAM: MR Head Without Intravenous Contrast CLINICAL HISTORY: Reason for exam: altered mentation, hx suboccipital craniectomy. TECHNIQUE: Magnetic resonance images of the head/brain without intravenous contrast in multiple planes. COMPARISON: MRI 03/05/[address] 06/01/2024 FINDINGS: Brain: Unremarkable. No mass. No hemorrhage. No acute infarct. Ventricles: Unremarkable. No ventriculomegaly. Bones/joints: Unremarkable. No acute fracture. Sinuses: Mucosal thickening within the left sphenoid sinus. Remainder of the paranasal sinuses are clear. No acute sinusitis. Mastoid air cells: Unremarkable as visualized. No mastoid effusion. Orbits: Unremarkable as visualized. IMPRESSION: No acute findings in the head/brain. Electronically signed by: Rohit Stallworth MD 06/01/24 22:49 PM
--- NOTE | 2024-06-01 23:20 | Magnetic Resonance Report ---
Exam(s): MRI C SPINE EXAM: MR Cervical Spine Without Intravenous Contrast CLINICAL HISTORY: Reason for exam: altered mentation, hx suboccipital craniectomy. TECHNIQUE: Magnetic resonance images of the cervical spine without intravenous contrast in multiple planes. COMPARISON: Cervical spine MRI 07/07/12. FINDINGS: Vertebrae: No marrow edema, compression deformity, discitis or osteomyelitis. Normal, smooth curvature. Spinal cord: Unremarkable. Normal signal. No cervical cord syrinx. Soft tissues: Unremarkable. No epidural hematoma or abscess. No Chiari malformation. DISCS/SPINAL CANAL/NEURAL FORAMINA: C2-C3: Unremarkable. C3-C4: Unremarkable. C4-C5: Unremarkable. C5-C6: Very minimal degenerative disc disease. C6-C7: Unremarkable. C7-T1: Unremarkable. OTHER: No disc herniation or central spinal stenosis. Facet joint fairly well-preserved for this age group. IMPRESSION: 1. Very minimal degenerative disc disease at C5-6. 2. No Chiari malformation, disc herniation, spinal stenosis, epidural hematoma, abnormal cord signal, or discitis/osteomyelitis. Electronically signed by: Kina Hogue M.D. 06/01/24 23:20 PM
[2024-06-02] MEDS ORDERED: ONDANSETRON INJ 2 MG/ML 2 ML VIAL IV PRN (00:03)
[2024-06-02 03:13] LABS: Appearance Urine Clear (Clear); Bilirubin Urine Negative (Negative); Blood Urine Negative (Negative); Color Urine Yellow; Glucose Urine UA Negative (Negative); Ketones Urine Trace (Negative); Leukocyte Esterase Urine Negative (Negative); Nitrite Urine Negative (Negative); Protein Urine Negative (Negative); Specific Gravity Urine 1.026 (1.000-1.030); Urobilinogen Urine Negative (Negative); pH Urine 5.5 (4.5-7.5)
[2024-06-02 06:02] LABS: Basophils # (auto) 0.06 K/uL (0.00-0.20); Basophils % (auto) 0.9 %; Eosinophils # (auto) 0.19 K/uL (0.00-0.50); Hematocrit (blood only) 35.2 % (37.0-47.0); Hemoglobin 11.9 g/dl (12.0-16.0); Immature Granulocytes # (auto) 0.02 K/uL (0.01-0.20); Immature Granulocytes % (auto) 0.3 %; Lymphocytes # (auto) 1.54 K/uL (1.20-3.40); Lymphocytes % (auto) 24.2 %; Mean Corpuscular Hemoglobin 29.8 pg (25.0-34.0); Mean Corpuscular Hgb Conc 33.8 g/dL (32.0-36.0); Mean Corpuscular Volume 88.2 fL (80.0-100.0); Mean Platelet Volume 9.6 fL (9.4-12.4); Monocytes # (auto) 0.61 K/uL (0.11-0.59); Monocytes % (auto) 9.6 %; Neutrophils # (auto) 3.95 K/uL (1.40-6.50); Platelet Count 241 K/uL (130-400); RDW Coefficient of Variation 14.1 % (11.5-14.5); RDW Standard Deviation 45.8 fL (36.4-46.3); Red Blood Count 3.99 M/uL (4.20-5.40); White Blood Count 6.37 K/ul (4.8-10.8)
[2024-06-02 06:23] LABS: Albumin Level 3.8 gm/dl (3.4-5.0); Creatinine Clr Calc Pharmacy 112.6 ml/min; Est GFR (African American) 131.7 ml/min; Est GFR (Non-African American) 113.7 ml/min; Phosphorus 3.9 mg/dl (2.5-4.9); Potassium 3.4 mmol/L (3.5-5.1)
--- NOTE | 2024-06-02 08:17 | Electroencephalogram ---
EEG Procedure Note Date of Service June 02, 2024 Start / End Times Start Time: 741 End Time: [address] Cortez History 48-year-old with history of acute episodic confusion Home Medication List Medication Instructions Recorded Confirmed Type aspirin 81 mg tablet,delayed 81 mg PO DAILY 06/01/24 06/01/24 History release bempedoic acid 180 mg-ezetimibe 10 1 tab PO DAILY 06/01/24 06/01/24 History mg tablet (Nexlizet) esomeprazole magnesium 20 mg 20 mg PO DAILY 06/01/24 06/01/24 History tablet,delayed release evolocumab 140 mg/mL subcutaneous 140 mg subcut .QOTHER Saturday06/01/24 06/01/24 History pen injector (Kimo Vila) fexofenadine 180 mg tablet 180 mg PO DAILY 06/01/24 06/01/24 History fluoxetine 40 mg capsule 40 mg PO DAILY 06/01/24 06/01/24 History rosuvastatin 40 mg tablet 40 mg PO DAILY 06/01/24 06/01/24 History semaglutide (weight loss) 1.7 1.7 mg subcut .WEEK 06/01/24 06/01/24 History mg/0.75 mL subcutaneous pen injector (Wegovy) Inpatient Medication List Discontinued Medications Ioversol (Optiray 320 100ml) 120 ml IV ONCE ONE Stop: 06/01/24 18:52 Last Admin: 06/01/24 18:52 Dose: 120 ml Documented By: LEROY Lorazepam (Lorazepam 1 Mg/1 Ml Syr Ed Inj Use) 0.5 mg IV ONE STA Stop: 06/01/24 21:17 Last Admin: 06/01/24 21:32 Dose: 0.5 mg Documented By: MEGAN Description This is a 21 electrode EEG with a single channel dedicated to limited EKG. The electrodes were placed in accordance with the International 10-20 system. Interpretation The predominant background activity consists of a very well modulated 9 Hz activity, of up to 40 mV in amplitude,seen symmetrically distributed over the posterior head regions bilaterally. This activity attenuates nicely with eye- opening and other alerting procedures. Photic stimulation was performed and elicited no change in the background activity and no abnormal responses were seen. Hyperventilation was not. A minimal amount of muscle and movement artifact activity contaminated the recording and did not hinder interpretation to any significant degree. Throughout the waking portion of the recording, no focal abnormalities, abnormal slow activity, or potentially epileptogenic discharges are seen. The patient entered the drowsy state with no further activation. In summary, this EEG was normal during wakefulness and drowsiness. No focal abnormalities, potentially epileptogenic discharges, or abnormal slow activity was seen. Clinical Correlation The abscence of potentially epileptogenic activity does not exclude a seizure disorder, since interictally, EEGs can be normal. Clinical correlation is required. [facility] EEG Procedure Codes Indication for Procedure (1) Recurrent episodes of unresponsiveness: Neurology Neurology: 96111 EEG include record awake & drowsy
[2024-06-02] MEDS: PANTOprazole 40 MG TAB PO SCH (09:30)
[2024-06-02] MEDS: ROSUVASTATIN CALCIUM 20 MG TAB PO SCH (09:31)
[2024-06-02] MEDS: FLUoxetine HCL 20 MG CAP PO SCH (09:31)
[2024-06-02] MEDS: FEXOFENADINE HCL 180 MG TAB PO SCH (09:31)
[2024-06-02] MEDS: ASPIRIN 81 MG ECTAB PO SCH (09:31)
[2024-06-02] MEDS: POTASSIUM CHLORIDE CRTAB 20 MEQ TABCR PO STA (09:34)
--- NOTE | 2024-06-02 09:36 | Ultrasound Report ---
US arterial duplex LE RT HISTORY: 48 years-old Female decreased LE pulses peripheral arterial disease COMPARISON: None TECHNIQUE: Lower extremity arterial Doppler with segmental pressures FINDINGS: Right-sided ANAHI of 1.19, left-sided ANAHI of 1.13. Minimal atherosclerosis. No arterial occlusion or significantly elevated peak systolic velocities to suggest high-grade stenosis. Predominantly triphasic waveforms throughout. IMPRESSION: Unremarkable exam. ACT 112: Negative or not required by law. The above report was generated using voice recognition software. It may contain grammatical, syntax o r spelling errors. Electronically signed by: Chase Amanda M.D. 06/02/2024 9:33 AM
[2024-06-02 10:24] LABS: Thyroid Stimulating Hormone 2.168 uIu/ml (0.300-4.500)
--- NOTE | 2024-06-02 10:41 | XCELERA ---
[id number]
--- NOTE | 2024-06-02 10:43 | Electrocardiogram Report ---
Test Reason : Blood Pressure : / mmHG Vent. Rate : 078 BPM Atrial Rate : 078 BPM P-R Int : 172 ms QRS Dur : 082 ms QT Int : 398 ms P-R-T Axes : 037 028 057 degrees QTc Int : 453 ms Normal sinus rhythm Confirmed by José Antonio Noel ([id number]) on 06/02/2024 10:42:50 AM Referred By: Lisa Taylor Confirmed By:Evin Noel
[2024-06-02] MEDS: ACETAMINOPHEN 325 MG TAB PO PRN (14:16)
--- NOTE | 2024-06-02 16:15 | Hospitalist Progress Note ---
Date of Service June 02, 2024 Assessment & Plan (1) Recurrent episodes of unresponsiveness: Plan: has had recurrent spells for 6+ months per her the majority of spells she is awake but spacy and groggy during them however she can answer questions and recollects them she is very tired during the spells and after them she typically does not lose consciousness there has never been typical or atypical seizure activity before, during, or after the spells she often feels cold/clammy, has michael-oral paresthesias, gets "shaky" and weak, etc. only her 2 most recent episodes at home did she not respond to her during them MRI brain negative EEG negative for seizure focus I believe the chronic episodes are due to hypoglycemia - see #2 below The 2 most recent episodes at home may have been a combination of low serum sodium and hypoglycemia Suspicion for atypical seizures or complex partial seizures is low We have not seen anything on heart monitoring while here Echo is stable CTA chest negative for aortic dissection or PE I reviewed her case with on-call neurology informally today Recommend glucometer teaching for home use If she has any spells in the future she should have her BSG checked and cor rected if low Could consider event monitoring for dysrhythmia but, again, doubt the episodes are cardiac-based Could consider video EEG at a tertiary care center but, again, atypical seizure not suspected (not 100% ruled out but suspicion is low) Follow BSGs overnight and correlate with symptoms if she experiences another low (2) Hypoglycemia: Plan: patient had a spell today this afternoon - it was a typical spell - she was groggy but awake & could answer questions had posterior headache, fatigue, weakness, cool/clammy feeling, etc check her BSG about an hour after it happened BSG was 69; repeat 70 her episodes could very well be due to recurrent hypoglycemia she has been on Wegovy since 2022 she is on a maintenance dose of 1.7mg qweek I suspect the Wegovy is causing all of this will check an AM cortisol level tomorrow to be complete to r/o adrenal insufficiency as the cause will reach out to endo for guidance but suspect the Wegovy dose should be reduced will also advise frequent small meals throughout the day to avoid lows interestingly she had 30-40gm of sugar to bring the BSG up and it took over 30- 40 minutes for the BSG to normalize (3) Right foot drop: Plan: rather acute, started 2 days ago MRI brain and MRI cervical spine wnl MRI lumbar spine with DDD but no significant nerve impingement to cause the right foot drop RLE Arterial duplex study negative for PAD Lyme screen negative Likely peroneal nerve impairment - but etiology??? Will send to neurology post-d/c --> needs EMG study (4) Hyponatremia with decreased serum osmolality: Plan: Na level upon presentation was 128 improved to 133 today repeat urine osm <100 c/w shut-off of ADH urine Na <20 TSH wnl Check cortisol level in am patient mentioned she drinks copious water at home thus, polydipsia causing the low Na? recheck BMP am (5) History of Chiari malformation: Plan: s/p craniotomy in 2011 (6) Ascending aorta dilatation: Plan: 4.4cm on imaging this admission no change cont yearly surveillance (7) Aortic stenosis: Plan: mild on today's echo no Rx needed outpatient surveillance over time needed as prior (8) Nocturia more than twice per night: Plan: u/a unremarkable repeat urine osm <100 which is c/w ADH being turned off urine Na <20 despite the above there is no evidence of diabetes insipidus as her serum Na level is NOT high nocturia could be due to COLTON or other sleep disordered breathing no evidence of hyperglycemia (9) Familial hypercholesterolemia: Plan: follows with [facility] for this takes Nexlizet + Repatha + crestor (10) Status post craniectomy: Plan: 2011 12 to Chiari malformation/low-lying cerebellar tonsils no issues since that time (11) Hypokalemia: Plan: replace repeat BMP am mag noted to be normal Plan very complex care coordination -- extensive chart review, prolonged bedside visit, informal discussion with neurology, etc total time today 85 minutes Admission and Anticipated Discharge Date Admission Date: June 01, 2024 Subjective patient lying comfortably in bed during the visit son, were present about an hour prior to my visit she had another "spell" in which she was fatigued/tired, "out of it" but able to talk/answer questions, had headache (posterior occiput & neck), felt cold/clammy symptoms lasted 30-60 minutes then resolved nothing precipitated the event reports that over the last 6-12 months she has had frequent spells similar to the above the bulk of these spells she is indeed awake she talks & answers questions during the episodes she reports that following the spells she is tired and has a headache she sometimes has michael-oral numbness never falls asleep during the episodes no eye blinking or staring or lip smacking per her /son during episodes has history of sleep apnea but no other sleep disorders with that said she reports she does sleep poorly on many nights and is frequently fatigued denies typical migraine headaches despite being on Wegovy she reports no prior history of DM she does not check BSGs patient reports about 2 days ago she noted she could not move the right foot that well in particular she can't dorsiflex the foot she has never had this before denies radicular pain of right leg does have back pain at times but today her back is feeling ok during the visit I had nursing check her BSG -- was 69; repeat was 70 she had 30-40gm of sugar to raise the BSG and about 30 min later she was finally 109 BSG her Wegovy is managed by endocrinology at [facility] takes her injections on Saturday has been on 1.7mg qweek for "long time" Review of Systems Review of Systems: gen - no fevers or chills cv - no cp, no orthopnea pulm - no dyspnea GI - no vomiting Physical Exam Physical Exam: gen - NAD, pleasant, awake/alert - a little sleepy neck - no rigidity mouth - MMM, no thrush heart - RRR, s1 s2, 2/6 systolic murmur RUSB lungs - CTA /l abd - soft NT ND BS+ ext - no edema, pulses 2+ b/l, normal perfusion neuro - strength 5/5 all muscle groups upper/lower extremities EXCEPT there is a mild foot drop on right with impaired dorsiflexion on the right; no muscle atrophy any location; no facial droop; speech clear Results & Data Results & Data Vital Signs (Past 12 Hours) Vital Signs Temp Pulse Pulse Resp BP Pulse Ox O2 Del Method 06/02/24 14:49 76 06/02/24 10:49 36.3 C L 68 18 113/76 100 Room Air 06/02/24 08:11 36.8 C 85 18 129/77 100 Room Air 06/02/24 07:15 74 Laboratory Results Abnormal Labs 06/01/24 06/02/24 06/02/24 17:13 05:22 15:18 RBC 3.99 L Hgb 11.9 L Hct 35.2 L [place] # (Auto) 0.61 H Sodium 128 L 133 L Potassium 3.4 L Chloride 95 L Creatinine 0.50 L POC Glucose 69 L* Osmolality 265 L 06/02/24 06/02/24 06/02/24 16:11 19:25 Unknown POC Glucose 109 H 109 H Urine Ketones Trace H Urine Osmolality 296 L 06/02/24 Unknown Urine Osmolality 96 L Diagnostic Findings Duplex Scan Lower Extremity Artery 06/02/24 00:00 US arterial duplex LE RT HISTORY: 48 years-old Female decreased LE pulses peripheral arterial disease COMPARISON: None TECHNIQUE: Lower extremity arterial Doppler with segmental pressures FINDINGS: Right-sided ANAHI of 1.19, left-sided ANAHI of 1.13. Minimal atherosclerosis. No arterial occlusion or significantly elevated peak systolic velocities to suggest high-grade stenosis. Predominantly triphasic waveforms throughout. IMPRESSION: Unremarkable exam. ACT 112: Negative or not required by law. The above report was generated using voice recognition software. It may contain grammatical, syntax or spelling errors. Electronically signed by: Chase Amanda M.D. 06/02/2024 9:33 AM Lumbar Spine MRI 06/02/24 16:15 Exam(s): MRI L SPINE Without Contrast EXAM: MR Lumbar Spine Without Intravenous Contrast CLINICAL HISTORY: Reason for exam: right foot drop. TECHNIQUE: Magnetic resonance images of the lumbar spine without intravenous contrast in multiple planes. COMPARISON: None FINDINGS: Vertebrae: Unremarkable. No acute fracture. Spinal cord: Conus medullaris terminates normally at the level of L1. Normal signal. Soft tissues: Unremarkable. DISCS/SPINAL CANAL/NEURAL FORAMINA: L1-L2: Disc bulge and facet degenerative changes and ligamentum flavum hypertrophy. Borderline narrowing of the spinal canal. No neural foraminal stenosis. L2-L3: Mild disc bulge. Facet degenerative changes and ligamentum flavum hypertrophy. No spinal canal stenosis. No neural foraminal stenosis. L3-L4: Mild disc bulge. Facet degenerative changes and ligamentum flavum hypertrophy. No spinal canal stenosis. No neural foraminal stenosis. L4-L5: Grade 1 anterolisthesis of L4 on L5. Disc bulge. Prominent facet degenerative changes. Mild ligamentum flavum hypertrophy. No spinal canal stenosis. No neural foraminal stenosis. L5-S1: Mild disc bulge. Facet degenerative changes. No spinal canal stenosis. No neural foraminal stenosis. IMPRESSION: 1. No acute fracture. 2. Degenerative changes as described above. Electronically signed by: Yvan Toure M.D. 06/02/24 21:34 PM PG Care Time/CCT Total # of Minutes Spent Total Time Spent with Patient: Total time spent is greater than 50% in coordination of care (as documented) at patient's floor/unit and/or counseling patient: Prolonged Care Time Prolonged Care Time: Yes Total Prolonged Care Time: 85 Coding Level of Care Code 99797 SUB INP/OBS CARE 3/50MIN (25 - SIGNIFICANT, SEPARATELY IDENTIFIABLE ) Diagnoses Recurrent episodes of unresponsiveness R40.4 Hypoglycemia E16.2 Right foot drop M21.371 Hyponatremia with decreased serum osmolality E87.1 History of Chiari malformation Z86.69 Ascending aorta dilatation I77.810 Aortic stenosis I35.0 Nocturia more than twice per night R35.1 Familial hypercholesterolemia E78.01 Status post craniectomy Z98.890 Hypokalemia E87.6 Additional Codes Prolonged Care Time - Prolonged Care Time: Yes ([id number])
[2024-06-02] MEDS: LORazepam 0.5 MG TAB PO STA (17:58)
--- NOTE | 2024-06-02 21:35 | Magnetic Resonance Report ---
Exam(s): MRI L SPINE Without Contrast EXAM: MR Lumbar Spine Without Intravenous Contrast CLINICAL HISTORY: Reason for exam: right foot drop. TECHNIQUE: Magnetic resonance images of the lumbar spine without intravenous contrast in multiple planes. COMPARISON: None FINDINGS: Vertebrae: Unremarkable. No acute fracture. Spinal cord: Conus medullaris terminates normally at the level of L1. Normal signal. Soft tissues: Unremarkable. DISCS/SPINAL CANAL/NEURAL FORAMINA: L1-L2: Disc bulge and facet degenerative changes and ligamentum flavum hypertrophy. Borderline narrowing of the spinal canal. No neural foraminal stenosis. L2-L3: Mild disc bulge. Facet degenerative changes and ligamentum flavum hypertrophy. No spinal canal stenosis. No neural foraminal stenosis. L3-L4: Mild disc bulge. Facet degenerative changes and ligamentum flavum hypertrophy. No spinal canal stenosis. No neural foraminal stenosis. L4-L5: Grade 1 anterolisthesis of L4 on L5. Disc bulge. Prominent facet degenerative changes. Mild ligamentum flavum hypertrophy. No spinal canal stenosis. No neural foraminal stenosis. L5-S1: Mild disc bulge. Facet degenerative changes. No spinal canal stenosis. No neural foraminal stenosis. IMPRESSION: 1. No acute fracture. 2. Degenerative changes as described above. Electronically signed by: Yvan Toure M.D. 06/02/24 21:34 PM
[2024-06-03 07:49] LABS: Albumin Level 3.8 gm/dl (3.4-5.0); BUN Creatinine Ratio 15.4 (10-20); Calcium 8.6 mg/dl (8.6-10.3); Creatinine Clr Calc Pharmacy 108.3 ml/min; Est GFR (Non-African American) 112.2 ml/min; Phosphorus 2.9 mg/dl (2.5-4.9); Potassium 3.7 mmol/L (3.5-5.1)
[2024-06-03 08:10] LABS: T4 Free Thyroxine 0.97 ng/dl (0.61-1.60)
[2024-06-03 09:01] LABS: Estimated Average Glucose 100 mg/dl; Hemoglobin A1C 5.1 % (4.5-5.6)
[2024-06-03] MEDS: EZETIMIBE PO SCH (11:33)
[2024-06-03] MEDS: BEMPEDOIC ACID PO SCH (11:33)
--- NOTE | 2024-06-03 17:33 | Discharge Summary ---
Discharge Summary Date of Service June 03, 2024 Principal Dx & Hospital Course #1 = Principal Diagnosis (1) Recurrent episodes of unresponsiveness: 48 y/o on wegovy maintenance dose following 100 pound weight loss. Admitted with recurrent episodes of decreased level of consciousness has had recurrent spells for 6+ months per her the majority of spells she is awake but spacy and groggy during them however she can answer questions and recollects them she is very tired during the spells and after them she typically does not lose consciousness there has never been typical or atypical seizure activity before, during, or after the spells she often feels cold/clammy, has michael-oral paresthesias, gets "shaky" and weak, etc. the 2 most recent episodes at home this week were more severe because she did not respond to her during them considered stroke/TIA, metabolic encephalopathy, medication side effects, infectious process, seizure disorder, arrhythmia majority of these were ruled out by ED/admitting workup. CT head, CTA hea d/neck, brain MRI were unremarkable. Notable absence of cerebrovascular disease. Multiple TIAs seems very unlikely. No evidence of infectious process. Serum sodium was moderately low at 128 (from recent baseline 134-135) but that is unlikely to cause neurological changes in young person at least in isolation. Spot EEG was negative for seizure pattern. She does have history of remote craniectomy for chiari malformation. Telemetry monitoring was negative for arrhythmia over 48h and echo was stable from previous in 2020. Evening of 06/03 my colleague witnessed a stereotypical episode - for her she was groggy but awake & could answer questions. Had posterior headache, fatigue, weakness, cool/clammy feeling, etc check her BSG about an hour after it happened BSG was 69; repeat 70. It took 30-40g of glucose and over an hour before BG came up to low 100s. Symptoms did resolve with treatment. This morning BG 81. 86 and asymptomatic throughout today. It seems likely that hypoglycemia episodes may account for her recurrent symptoms -prescribed glucometer, check BG 3x a day and PRN for about a week. Administer juice/sugar followed by a meal if BG<70s -hold Wegovy for now -she will call her medical coding technician at [facility] to discuss dose reduction - she is able to do over telemedicine visit -advised adding an evening meal (currently she is not eating after 3pm and fast ing from 3p to breakfast), advised liberalizing diet -unlikely to develop severe hypoglycemia since she is not diabetic and not on hypoglycemic agents other than Wegovy If recurrent episodes despite absence of hypoglycemia further workup may include ambulatory cardiac monitoring or video EEG at tertiary care center. (2) Hypoglycemia: See above she has been on Wegovy since 2022 she is on a maintenance dose of 1.7mg qweek I suspect the Wegovy is causing all of this AM cortisol was 11 which is normal range but does not 100% rule out adrenal insufficiency. Has not had hypotension or hyperkalemia, though sodium runs low. If recurrent issues off Wegovy consider formal testing with cosyntropin stim test. TSH was normal. (3) Right foot drop: rather acute, started 2 days EQUIPMENT INSPECTOR. No pain or dysesthesia. MRI brain and MRI cervical spine wnl MRI lumbar spine with DDD but no significant nerve impingement to cause the right foot drop RLE Arterial duplex study negative for PAD Lyme screen negative Likely peroneal nerve injury, most common would be a compression neuropathy which would expect to resolve over a few weeks Discussed with neurologist and arranged referral for outpatient EMG. Follow up with neurologist if abnormal/non-resolving (4) Hyponatremia with decreased serum osmolality: Na level upon presentation was 128, improved to 133 then 130. Earlier in 2023 has been 134-135 repeat urine osm <100 c/w appropriate shut-off of ADH urine Na appropriately fairly low at 18. TSH wnl, cortisol 11 see above She does drink copious amount of water at home - at least 64 oz from her water bottle as well as coffee, drinks with meals etc. Has sensation of being thirsty especially at night (note she is on antihistamine for allergies which will contribute to dry mouth). Does not restrict her salt intake and tends to salt her food liberally. Suspect polydipsia on top of possible mild/borderline SIADH related to SSRI or previous craniectomy. Advised moderating her fluid intake -recommend repeat BMP on outpatient follow up -if persisting or worsening despite less excessive water intake may need to repeat urine sodium, adjust SSRI (5) History of Chiari malformation: s/p craniotomy in 2011 (6) Ascending aorta dilatation: 4.4cm on imaging this admission no change cont yearly surveillance has been normotensive (7) Aortic stenosis: mild on echo continue outpatient surveillance as prior (8) Nocturia more than twice per night: u/a unremarkable no evidence of DI or DM suspect excessive evening water intake (9) Familial hypercholesterolemia: follows with [facility] for this takes Nexlizet + Repatha + crestor (10) Hypokalemia: replaced mag noted to be normal Notes For Next Care Provider Please check BMP for sodium, potassium and review blood glucose at primary care follow up please follow up up outpatient EMG for right lower extremity foot drop, foll ow-up with neurology if abnormal/persistent She will contact her medical coding technician at [facility] regarding hypoglycemia/Wegovy dosing, hold Wegovy until then If recurrent episodes despite elimination of hypoglycemia consider ambulatory cardiac monitoring, neurology referral to consider continuous video EEG Medication Changes From Visit Wegovy held Admission HPI Per Admitting Provider The patient is a 48-year-old female with a past medical history including Chiari malformation status post suboccipital craniotomy in 2011, moderate aortic stenosis, aortic insufficiency, ascending aorta dilatation, severe atherogenic familial hypercholesterolemia, obesity on weight loss Wegovy with 90 pound weight loss since August 2023. The patient presents to the emergency department due to concerns regarding multiple episodes of staring off into space, with most recent followed by disorientation for up to 30 minutes, without associated loss of bowel or bladder control. The patient does report nocturia, urinating approximately every 2 hours overnight. She also notes decreased ability to flex toes, and more recent development but exact timeframe uncertain. She reports that she was to get arterial studies done at [facility]. She follows at [facility] for her severe familial hypercholesterolemia, and associated medical issues. The patient reports an intentional 90 pound weight loss since August 2023 on Wegovy, and reports that she is currently at her recommended target weight, but her cholesterol is still not optimized with an LDL of approximately 90 Discharge Exam PHYSICAL EXAMINATION Last 24h vital signs reviewed, see documentation in flowsheet General: comfortable appearing, no distress, well-appearing HEENT: Normocephalic, atraumatic, pupils round and equal, sclerae anicteric, no conjunctival injection, moist mucus membranes Lungs: Normal respiratory effort. Heart: Regular rate and rhythm, no murmurs. No JVD Abdomen: Soft, nontender, nondistended. Bowel sounds present. Extremities: Warm, dry, well-perfused. No extremity edema. Neuro: Alert and oriented x 4, face symmetric, moves 4 extremities well Psych: Normal affect and behavior Updated Medication List Medication Instructions Recorded Confirmed Type aspirin 81 mg tablet,delayed 81 mg PO DAILY 06/01/24 06/01/24 History release bempedoic acid 180 mg-ezetimibe 10 1 tab PO DAILY 06/01/24 06/01/24 History mg tablet (Nexlizet) esomeprazole magnesium 20 mg 20 mg PO DAILY 06/01/24 06/01/24 History tablet,delayed release evolocumab 140 mg/mL subcutaneous 140 mg subcut .QOTHER Saturday06/01/24 06/01/24 History pen injector (Kimo Vila) fexofenadine 180 mg tablet 180 mg PO DAILY 06/01/24 06/01/24 History fluoxetine 40 mg capsule 40 mg PO DAILY 06/01/24 06/01/24 History rosuvastatin 40 mg tablet 40 mg PO DAILY 06/01/24 06/01/24 History semaglutide (weight loss) 1.7 1.7 mg subcut .WEEK 06/01/24 06/01/24 History mg/0.75 mL subcutaneous pen injector (Ksenia) blood sugar diagnostic (FreeStyle #100 ea 06/03/24 Rx Lite Strips) blood-glucose meter (FreeStyle #1 ea 06/03/24 Rx [place] Lite kit) lancets 28 gauge (FreeStyle #100 ea 06/03/24 Rx Lancets) Hospital Stay Data Consultations 06/01/24 20:25 ED Decision to Admit Stat Diagnostic Imagining Performed 06/01/24 17:09 CT head/brain wo con Stat 06/01/24 18:33 CTA chest dissec wo/w con [CT angio chest dissec wo/w con] Stat CTA head w con [CT angio head w con] Stat CTA neck with con [CT angio neck with con] Stat 06/01/24 21:02 MRI Brain [MR brain wo con] Stat MRI Cervical [MR cervical spine wo con] Stat 06/02/24 US arterial duplex LE RT Routine 06/02/24 16:15 MR lumbar spine wo con Routine Chest X-Ray 06/01/24 17:09 XR chest 1V portable HISTORY: stroke alert COMPARISON: Chest 01/20/2020. FINDINGS: The lungs are clear. Cardiac silhouette is normal in size. No pleural effusions. No pneumothorax. IMPRESSION: No acute process. ACT 112: Negative or not required by law. Electronically signed by: Terrance Red M.D. 06/01/2024 6:[address] 06/01/24 17:09 Exam(s): CT HEAD Without Contrast EXAM: CT Head Without Intravenous Contrast CLINICAL HISTORY: Reason for exam: Neuro deficit, acute, stroke suspected. TECHNIQUE: Axial computed tomography images of the head/brain without intravenous contrast. CTDI is 67 mGy and DLP is 565 mGy-cm. Automated exposure control was utilized for the study. A dose lowering technique was utilized adhering to the principles of ALARA. COMPARISON: MRI brain 03/05/23. FINDINGS: Brain: No mass effect or acute infarct. No acute hemorrhage. No abnormal density in the brain parenchyma. Ventricles: No hydrocephalus or midline shift. Bones/joints: No skull fracture. Well-healed suboccipital craniectomy. Soft tissues: No scalp hematoma. Visualized Sinuses: Clear. Mastoid air cells: No mastoid effusion. IMPRESSION: 1. Well-healed suboccipital craniectomy. 2. No acute intracranial abnormality. Electronically signed by: Kina Hogue M.D. 06/01/24 19:55 PM Chest CTA 06/01/24 18:33 Exam(s): CTA CHEST W/WO Contrast IV Amt: 120ml optiray 320 EXAM: CT Angiography Chest Without and With Intravenous Contrast CLINICAL HISTORY: Reason for exam: Dissection, hx of Fibromuscular dysplasia. TECHNIQUE: Axial computed tomographic angiography images of the chest without and with intravenous contrast. CTDI is 67 mGy and DLP is 565 mGy-cm. Automated exposure control was utilized for the study. A dose lowering technique was utilized adhering to the principles of ALARA. MIP reconstructed images were created and reviewed. CONTRAST: Patient received 120ml optiray 320 of IV contrast COMPARISON: Chest CT 05/10/2023 FINDINGS: Pulmonary arteries: No pulmonary embolism. Aorta: Aneurysmal ascending thoracic aorta measuring 4.4 cm which is unchanged. No acute aortic syndrome. Lungs: Unremarkable. Pleural space: Unremarkable. Heart: Unremarkable. Bones/joints: No acute fracture. Soft tissues: Unremarkable. Lymph nodes: Unremarkable. Liver: Partially visualized low-attenuation lesions within the liver favored to represent cysts. IMPRESSION: Aneurysmal ascending thoracic aorta measuring 4.4 cm which is unchanged. No acute aortic syndrome. Electronically signed by: Rohit Stallworth MD 06/01/24 19:49 PM Head CTA 06/01/24 18:33 Exam(s): CTA HEAD With Contrast IV Amt: 120ml optiray 320 EXAM: CT Angiography Head With Intravenous Contrast CLINICAL HISTORY: Reason for exam: Dissection, hx of Fibromuscular dysplasia, R weak. TECHNIQUE: Axial computed tomographic angiography images of the head with intravenous contrast. CTDI is 67 mGy and DLP is 565 mGy-cm. Automated exposure control was utilized for the study. A dose lowering technique was utilized adhering to the principles of ALARA. MIP reconstructed images were created and reviewed. CONTRAST: Patient received 120ml optiray 320 of IV contrast COMPARISON: Head CT done earlier. FINDINGS: Right internal carotid artery: Patent. Right anterior cerebral artery: Patent. Right middle cerebral artery: Patent. Right posterior cerebral artery: Patent. Right vertebral artery: Patent. Left internal carotid artery: Patent. Left anterior cerebral artery: Patent. Left middle cerebral artery: Patent. Left posterior cerebral artery: Patent. Left vertebral artery: Patent. Basilar artery: Patent. Other: Changes of suboccipital craniectomy again noted. IMPRESSION: 1. No aneurysm or large vessel occlusion. Electronically signed by: Kina Hogue M.D. 06/01/24 20:00 PM Neck CTA 06/01/24 18:33 Exam(s): CTA NECK With Contrast IV Amt: 120ml optiray 320 EXAM: CT Angiography Neck With Intravenous Contrast, With Intra-Articular Contrast CLINICAL HISTORY: Reason for exam: Dissection, hx of Fibromuscular dysplasia. TECHNIQUE: Routine carotid CT angiography protocol was performed with intravenous contrast, with intra-articular contrast. NASCET criteria using the distal ICAs for comparison were used for evaluation of stenoses. CTDI is 67 mGy and DLP is 565 mGy-cm. Automated exposure control was utilized for the study. A dose lowering technique was utilized adhering to the principles of ALARA. MIP reconstructed images were created and reviewed. CONTRAST: Patient received 120ml optiray 320 of IV contrast COMPARISON: None. FINDINGS: Right common carotid artery: Patent. Right internal carotid artery: Patent. Right vertebral artery: Patent. Left common carotid artery: Patent. Left internal carotid artery: Patent. Left vertebral artery: Patent. Codominant. Other: No significant carotid atherosclerosis or stenosis. IMPRESSION: 1. No dissection, occlusion, or significant stenosis. CAROTID STENOSIS REFERENCE USING NASCET CRITERIA: % ICA stenosis = (1 - narrowest ICA diameter/diameter of distal cervical ICA) x 100. Mild - <50% stenosis. Moderate - 50-69% stenosis. Severe - 70-94% stenosis. Near occlusion - 95-99% stenosis. Occluded - 100% stenosis. Electronically signed by: Kina Hogue M.D. 06/01/24 20:00 PM Brain MRI 06/01/24 21:02 Exam(s): MRI HEAD Without Contrast EXAM: MR Head Without Intravenous Contrast CLINICAL HISTORY: Reason for exam: altered mentation, hx suboccipital craniectomy. TECHNIQUE: Magnetic resonance images of the head/brain without intravenous contrast in multiple planes. COMPARISON: MRI 03/05/[address] 06/01/2024 FINDINGS: Brain: Unremarkable. No mass. No hemorrhage. No acute infarct. Ventricles: Unremarkable. No ventriculomegaly. Bones/joints: Unremarkable. No acute fracture. Sinuses: Mucosal thickening within the left sphenoid sinus. Remainder of the paranasal sinuses are clear. No acute sinusitis. Mastoid air cells: Unremarkable as visualized. No mastoid effusion. Orbits: Unremarkable as visualized. IMPRESSION: No acute findings in the head/brain. Electronically signed by: Rohit Stallworth MD 06/01/24 22:49 PM Cervical Spine MRI 06/01/24 21:02 Exam(s): MRI C SPINE EXAM: MR Cervical Spine Without Intravenous Contrast CLINICAL HISTORY: Reason for exam: altered mentation, hx suboccipital craniectomy. TECHNIQUE: Magnetic resonance images of the cervical spine without intravenous contrast in multiple planes. COMPARISON: Cervical spine MRI 07/07/12. FINDINGS: Vertebrae: No marrow edema, compression deformity, discitis or osteomyelitis. Normal, smooth curvature. Spinal cord: Unremarkable. Normal signal. No cervical cord syrinx. Soft tissues: Unremarkable. No epidural hematoma or abscess. No Chiari malformation. DISCS/SPINAL CANAL/NEURAL FORAMINA: C2-C3: Unremarkable. C3-C4: Unremarkable. C4-C5: Unremarkable. C5-C6: Very minimal degenerative disc disease. C6-C7: Unremarkable. C7-T1: Unremarkable. OTHER: No disc herniation or central spinal stenosis. Facet joint fairly well-preserved for this age group. IMPRESSION: 1. Very minimal degenerative disc disease at C5-6. 2. No Chiari malformation, disc herniation, spinal stenosis, epidural hematoma, abnormal cord signal, or discitis/osteomyelitis. Electronically signed by: Kina Hogue M.D. 06/01/24 23:20 PM Duplex Scan Lower Extremity Artery 06/02/24 00:00 US arterial duplex LE RT HISTORY: 48 years-old Female decreased LE pulses peripheral arterial disease COMPARISON: None TECHNIQUE: Lower extremity arterial Doppler with segmental pressures FINDINGS: Right-sided ANAHI of 1.19, left-sided ANAHI of 1.13. Minimal atherosclerosis. No arterial occlusion or significantly elevated peak systolic velocities to suggest high-grade stenosis. Predominantly triphasic waveforms throughout. IMPRESSION: Unremarkable exam. ACT 112: Negative or not required by law. The above report was generated using voice recognition software. It may contain grammatical, syntax or spelling errors. Electronically signed by: Chase Amanda M.D. 06/02/2024 9:33 AM Lumbar Spine MRI 06/02/24 16:15 Exam(s): MRI L SPINE Without Contrast EXAM: MR Lumbar Spine Without Intravenous Contrast CLINICAL HISTORY: Reason for exam: right foot drop. TECHNIQUE: Magnetic resonance images of the lumbar spine without intravenous contrast in multiple planes. COMPARISON: None FINDINGS: Vertebrae: Unremarkable. No acute fracture. Spinal cord: Conus medullaris terminates normally at the level of L1. Normal signal. Soft tissues: Unremarkable. DISCS/SPINAL CANAL/NEURAL FORAMINA: L1-L2: Disc bulge and facet degenerative changes and ligamentum flavum hypertrophy. Borderline narrowing of the spinal canal. No neural foraminal stenosis. L2-L3: Mild disc bulge. Facet degenerative changes and ligamentum flavum hypertrophy. No spinal canal stenosis. No neural foraminal stenosis. L3-L4: Mild disc bulge. Facet degenerative changes and ligamentum flavum hypertrophy. No spinal canal stenosis. No neural foraminal stenosis. L4-L5: Grade 1 anterolisthesis of L4 on L5. Disc bulge. Prominent facet degenerative changes. Mild ligamentum flavum hypertrophy. No spinal canal stenosis. No neural foraminal stenosis. L5-S1: Mild disc bulge. Facet degenerative changes. No spinal canal stenosis. No neural foraminal stenosis. IMPRESSION: 1. No acute fracture. 2. Degenerative changes as described above. Electronically signed by: Yvan Toure M.D. 06/02/24 21:34 PM Pending Results Patient Have Any Pending Studies at Discharge: No Discharge Instructions Given to Patient (Per Discharging Provider) You were evaluated for transient episodes of altered mental status - probably related to low blood sugar We did not find evidence of stroke and TIA seems unlikely based on normal brain MRI and CT of blood vessels in head and neck with no significant vascular disease. Your echo was also reassuring and was not changed from previous. EEG test was negative for seizure pattern. These episodes do not seem TIA or seizure-like. You did have low blood sugar in 60s during a typical episode witness in the hospital. Hypoglycemia (low blood sugar) episodes may explain your symptoms. -recommend monitoring blood sugar with a glucometer - can check 3x a day for about a week and as needed if symptoms recur -blood sugars above 70 typically should not cause significant symptoms -if your blood sugar is 50 - 70 and you have symptoms, eat something sugary (fruit juice, candy etc) to increase your blood sugar quickly and eat a meal containing some carbohydrates, see if these symptoms resovle -I think it is extremely unlikely that you would have severely low blood sugar (<50 ) -Wegovy is probably the culprit - hold this for now and call your medical coding technician about a dose adjustment Your blood sodium is running mildly low, around 130. This is not low enough to cause neurological symptoms typically. It sounds like you eat plenty of salt, however you are drinking a lot of fluids which may be "washing out" your blood sodium - ie outdoing your body's capacity to pee out extra water and hold onto enough salt. Your fluid tolerance might be lower because of your previous neurosurgery and/or the fluoxetine -try drinking a "normal" amount of fluids - drink to thirst and be mindful that your allergy medicine may be causing dry mouth -most people need around 2 liters of total fluid intake per day, and more if sweating, exercising etc -if blood sodium is staying low despite reducing oral fluids, you doctor may need to try holding fluoxetine. SSRI medications are well known to induce low sodium. Ask your primary care doctor to review your blood sugar and check a blood chemistry panel on follow up. Your TSH and cortisol levels were in the normal range. For the right foot drop it seems like a peripheral nerve injury (peroneal nerve). The neurologist recommended nerve conduction study - we made referral for this as an outpatient. The most common cause is compression of the nerve and this usually resolves itself within a few weeks. It was a pleasure taking care of you in the hospital, Hannah Reddy MD Total Time Total Time Spent Total Time Spent (In Minutes): I personally spent: 50 minutes today on clinical care activities including: reviewing chart notes and vital signs reviewing labs reviewing studies examining and counseling the patient counseling the patient's family writing orders, discharge instructions documentation Coding Level of Care Code 39963 INP/OBS DISCH >30 MIN Diagnoses Recurrent episodes of unresponsiveness R40.4 Hypoglycemia E16.2 Right foot drop M21.371 Hyponatremia with decreased serum osmolality E87.1 History of Chiari malformation Z86.69 Ascending aorta dilatation I77.810 Aortic stenosis I35.0 Nocturia more than twice per night R35.1 Familial hypercholesterolemia E78.01 Hypokalemia E87.6
[2024-06-05 10:32] LABS: Anti Cardiolipin Ab IgG <2.0 GPL-U/mL; Anti Cardiolipin Ab IgM <2.0 MPL-U/mL; Babesia microti DNA Not Detected (Not Detected)
[2024-06-05 15:09] LABS: Ehrlichia chaff DNA Bld Negative (Negative)
[2024-06-09 05:42] LABS: Anti Nuclear Antibody Screen NEGATIVE (NEGATIVE); Anti-Thrombin III Activity 98 % normal (80-135); B2 Glycoprotein IgG <2.0 U/mL (<20.0); B2 Glycoprotein IgM <2.0 U/mL (<20.0); PTT LA Screen 35 sec (<=40); Protein S Functional(Activity) 58 % normal (60-140)
== END 2024-06-03 14:38 | disposition home or self-care (01) | DRG 641 ==
LOC: ED 16:57 → SUATTDRO 21:26 → 2S 21:26